=== PATIENT | female | born 1990 | race Caucasian/White ===

== ENCOUNTER 2023-08-27 13:30 | Outpatient (AMB) | payer OTHER, SELFPAY ==
--- NOTE | 2023-08-27 13:34 | MHC.OFFWIV ---
Intake Vital Signs 08/27/23 13:36 Height 5 ft 8 in Weight 141 lb BMI 21.4 BP 112/60 Blood Pressure Location Rt brachial Position Sitting Pulse 68 Pulse Source Pulse Oximeter Temp 97.7 F Temp Source Temporal Artery Scan Pulse Oximetry (%) 97 Oxygen Delivery Method Room Air Intake Visit Reasons: EP sore throat Intake Note: pt is here today for sore throat started yesterday Patient Tobacco Use Status: Never used Tobacco Is last menstrual period known: Yes Patient : No Allergies No Known Allergies Allergy (Verified 08/27/23 13:38) Do you need a note to return to daycare/school/sports/work: No HPI HPI Comments History of Present Illness Details Patient is a 33-year-old female in today for sick visit. She reports feeling sore throat x1 day, after going out in a busy public place. Strep test in office was negative. Denies shortness of breath, chest pain, dizziness, nausea, vomiting, diarrhea. Has not tried any medications. PFSH Social History Patient Tobacco Use Status: Never used Tobacco Patient : No Review of Systems Const Details: Constitutional : No Weight loss, No Fever, No Chills, No Fatigue, No Malaise ENT/Mouth : Admits sore throat Eyes: No Eye Pain, No Swelling, No Redness Cardiovascular : No Chest Pain, No SOB, No Dyspnea on Exertion, No Orthopnea, No Edema, No Palpitations Respiratory : No Cough, No Sputum, No Wheezing Gastrointestinal : No Nausea, No Vomiting, No Diarrhea, No Constipation, No abdominal Pain, No Hematochezia, No Melena Neuro : No Weakness, No Numbness, No Dizziness, No Headache All other systems reviewed and are negative Physical Exam Vital Signs: Last Vital Signs Temp 97.7 F 08/27/23 13:36 Pulse 68 08/27/23 13:36 BP 112/60 08/27/23 13:36 Pulse Ox 97 08/27/23 13:36 Oxygen Delivery Method Room Air 08/27/23 13:36 BMI result Body Mass Index 21.4 Vital signs reviewed and are stable Const Other: Appearance: Alert.? Oriented X3.? No acute distress.? Head: Normocephalic, atraumatic, no step-offs or deformities Eyes: Pupils equal, round and reactive to light.? ENT: Pharnx cobblestoned with erythema. Bilateral TM effusion with no erythema. Neck: Normal inspection.? Neck supple.?Full ROM CVS: Normal heart rate and rhythm.? Pulses normal.? Respiratory: No respiratory distress.? Breath sounds normal.? Neuro: Oriented X 3.? No motor deficit.? No sensory deficit. CN 2-12 intact Results AMB Rapid Strep AMB Rapid Strep Negative Last Edit by Diana Campbell CMA on 08/27/23 13:54 Results Reviewed Results Reviewed: Laboratory Last Values Strep Scn [facility] Negative 08/27/23 13:52 Assessment & Plan Assessment & Plan (1) Upper respiratory infection: Comment: Patient will be given prednisone to be taken as directed. She has also been instructed that she can use [id number] supportive medication for symptom relief. This is infection is likely viral. Code(s): J06.9 - Acute upper respiratory infection, unspecified Qualifiers: URI type: unspecified URI Qualified Code(s): J06.9 - Acute upper respiratory infection, unspecified Plan Take your medications as prescribed. If you were prescribed antibiotics today, it is important that you take your medication to their entirety, do not skip any doses, do not finish them early. Follow-up with your primary care provider this week. Return to the emergency department with new or worsening symptoms. Such as fevers, chills, chest pain, shortness of breath, nausea, vomiting, dizziness, headache, vision changes, lethargy In case of emergency call 911 Orders: Orders AMB Rapid Strep Screen Today Z13.9 - Encounter for screening, unspecified NIXON Farley SARS-CoV2/FLU/RSV Today J06.9 - Acute upper respiratory infection, unspecified NIXON Nichols Medications: New prednisone 20 mg PO BID 8 tabs 0RF NIXON Nichols Coding Level of Care Code Est Pt Level 3 (10062) Diagnoses Upper respiratory tract infection, unspecified type J06.9 URI type: unspecified URI Time Spent (min) 20
[2023-08-27 13:36] VITALS: BP 112/60; PULSE 68; TEMP 36.5; O2SAT 97; BMI 21.4
== END 2023-08-27 17:04 | disposition home or self-care (01) ==
PROVIDERS: PCP Nurse Practitioner Family; Visit Provider Nurse Practitioner Primary Care
DX: J02.9 Acute pharyngitis, unspecified (principal)
CPT/HCPCS: 87880; 99213

== ENCOUNTER 2023-08-27 18:53 | Outpatient (REF) | payer OTHER, SELFPAY ==
[2023-08-27 19:39] LABS: Influenza A PCR NEGATIVE (Negative); Influenza B PCR NEGATIVE (Negative); Resp Syncy Virus RNA Qual PCR NEGATIVE (Negative); SARS COV2 PCR INHOUSE NEGATIVE (Negative)
== END 2023-08-27 18:54 | disposition home or self-care (01) ==
LOC: HO.HMGCLNP 18:53
PROVIDERS: Visit Provider Nurse Practitioner Primary Care
DX: Z11.52 Encounter for screening for COVID-19 (principal); J06.9 Acute upper respiratory infection, unspecified
CPT/HCPCS: 0241U